=== PATIENT | female | born 1980 | race American Indian/Alaskan Native ===

== ENCOUNTER 2021-03-25 20:42 | Emergency (ER) | payer MEDICAID, SELFPAY ==
--- NOTE | ~2021-03-25 | XR_ITS ---
EXAMINATION: XR KNEE, LEFT CLINICAL INFORMATION: Knee pain after a fall. COMPARISON: None TECHNIQUE: Four views of the left knee. FINDINGS: Bones and soft tissues are normal. No fracture or joint effusion. Alignment is anatomic. Joint spaces are well maintained. No abnormal soft tissue calcification. XR/XR knee LT 3V IMPRESSION: Normal left knee.
[2021-03-25 20:51] VITALS: BP 146/94; PULSE 95; RESP 18; TEMP 36.6; O2SAT 97; BMI 27.0
--- NOTE | 2021-03-25 21:57 | ED.LOWEXIN ---
HPI - Extremity Injury (Lower) General Chief Complaint: Extremity Injury, Lower Stated Complaint: Knee pain Time Seen by Provider: 03/25/21 20:57 Source: patient Mode of arrival: ambulatory History of Present Illness HPI Narrative: 40-year-old female no significant past medical history presenting to the ED complaining of left knee pain s/p slip and fall on wet floor after leaving work a few days ago. Reports pain since incident, worse with ambulation/movement. Reports shocking pain down LLE. Denies numbness, tingling, weakness, head trauma, LOC Related Data Previous Rx's Medication Instructions Recorded acetaminophen 500 mg tablet 500 mg PO Q6H PRN #20 tab 03/25/21 (Tylenol Extra Strength) naproxen 500 mg tablet 500 mg PO BID PRN 10 Days #20 tab 03/25/21 Allergies Allergy/AdvReac Type Severity Reaction Status Date / Time No Known Allergies Allergy Unverified 04/26/20 19:15 Review of Systems Review of Systems: Constitutional: No Fever, No Chills Musculoskeletal: + joint pain, No Myalgias, No Joint Swelling Skin: No Skin Lesions, No rash Neuro: No Weakness, No Numbness, No Paresthesias, no head trauma, no LOC Yes all other systems are reviewed and are negative [facility] Past Medical History Attestation statement: The following information was validated with the patient. Medical History (Updated 03/25/21 @ 22:12 by MUNDO Stuart) No known health problems Social History Social History Advance Directives: No Advance Directives Information Provided: No Physical Exam Vital Signs: Vital Signs: Last Vital Signs Temp 97.9 F 03/25/21 20:51 Pulse 95 03/25/21 20:51 Resp 18 03/25/21 20:51 BP 146/94 H 03/25/21 20:51 Pulse Ox 97 03/25/21 20:51 Body Mass Index 27.0 Const: General: cooperative and healthy appearing Orientation/consciousness: patient oriented x3 Limitations: no limitations HENMT: Head: Yes normal to inspection Ears: hearing grossly normal bilaterally General nose exam: Normal external nose present Face and sinus: Yes normal facial exam Eyes: General: appearance normal, both eyes and all related structures EOM: EOMs intact bilaterally Neck: Neck: Yes normal visual inspection Resp: Effort & Inspection: normal respiratory effort and no respiratory distress Cardio: Rate: regular rate Peripheral pulses: dorsalis pedis present Skin: Rashes: no rashes Wounds: no wounds Neuro: General: patient oriented x3 Gait exam (Neuro): Normal gait present Extrem: Other: Left knee with mild tenderness to palpation. FROM intact. Neurovascularly intact distally. Ambulating with steady gait General: Yes normal to inspection Course Course Course Narrative: XR knee LT 3V IMPRESSION: Normal left knee. >> discussed with patient. Lavelle wrap applied for comfort/stability. Is to follow up with PCP as needed MDM - Extremity Injury (Lower) MDM Narrative Medical decision making narrative: 40-year-old female no significant past medical history presenting to the ED complaining of left knee pain s/p slip and fall on wet floor after leaving work a few days ago. On exam VSS, NAD visual exam swelling. Rule out fracture versus MSK pain/strain. Will obtain x-rays Discharge Plan Discharge Clinical Impression: Knee pain Qualifiers: Chronicity: acute Laterality: left Qualified Code(s): M25.562 - Pain in left knee Patient Disposition: Home, Self-Care Instructions: Knee Pain (ED) Additional Instructions: Your x-ray was unremarkable Wear Lavelle wrap at home as needed for comfort/stability Ice and elevate her knee Naproxen as an anti-inflammatory/pain medication, take with food In addition take Tylenol new line follow-up with her doctor Tu radiograf?a no tuvo nada especial Use la envoltura Lavelle en casa seg?n sea necesario para mayor comodidad / estabilidad Hielo y eleva jimenez rodilla Naproxeno mark medicamento antiinflamatorio / analg?sico, dominic con alimentos. Adem?s, lleve el seguimiento de la nueva l?svetlana de Tylenol con jimenez m?dico. Prescriptions: New acetaminophen [Tylenol Extra Strength] 500 mg tablet 500 mg PO Q6H PRN (Reason: pain or fever) Qty: 20 RF: 0 naproxen 500 mg tablet 500 mg PO BID PRN (Reason: pain) 10 Days Qty: 20 RF: 0 Referrals: Physician,Unknown [Primary Care Provider] - 2 days Stand Alone Forms: Work/School Release Interventions: ED Discharge Assessment Last Done: 03/25/21 22:27 Discharge Date/Time: 03/25/21 22:28 Print Language: Thai
== END 2021-03-25 22:28 | disposition home or self-care (01) ==
PROVIDERS: Emergency Provider Student in an Organized Health Care Education/Training Program
DX: Z04.2 Encounter for examination and observation following work accident (principal); M25.562 Pain in left knee
CPT/HCPCS: 73562; 99283

== ENCOUNTER 2021-09-23 11:08 | Emergency (ER) | payer MEDICAID, SELFPAY ==
[2021-09-23 11:40] VITALS: BP 135/84; PULSE 86; RESP 17; TEMP 36.1; O2SAT 97; BMI 35.6
[2021-09-23 11:52] LABS: MANUAL DIFF FLAG NO
[2021-09-23 11:57] LABS: Basophils Absolute Auto 0.1 X10*3/uL (0.0-0.2); Basophils Percent Auto 0.6 % (0-2); Eosinophils Absolute Auto 0.4 X10*3/uL (0.0-0.4); Eosinophils Percent Auto 4.2 % (0-4); Hematocrit 42.8 % (37.0-47.0); Hemoglobin 14.1 g/dl (12.0-16.0); Imm Gran Abs Auto 0.01 X10*3/uL (0.00-0.03); Imm Gran Pct Auto 0.1 % (0.0-0.4); Lymphocytes Absolute Auto 3.1 X10*3/uL (1.2-4.9); Lymphocytes Percent Auto 36.9 % (20-40); Mean Corpuscular HGB Conc 32.9 g/dl (31.0-35.0); Mean Corpuscular Hemoglobin 28.1 pg (27.0-33.0); Mean Corpuscular Volume 85.4 fL (80.0-98.0); Mean Platelet Volume 9.5 fL (9.4-12.3); Monocytes Absolute Auto 0.5 X10*3/uL (0.1-1.2); Monocytes Percent Auto 6.4 % (2-11); Neutrophils Absolute Auto 4.3 x10*3/uL (2.0-8.3); Neutrophils Percent Auto 51.8 % (45-73); Platelet Count 342 X10*3/uL (160-400); Red Blood Count 5.01 X10*6/uL (4.20-5.50); Red Cell Distribution Width 12.2 % (11.0-16.0); White Blood Count 8.3 X10*3/uL (4.8-10.8)
[2021-09-23 12:14] LABS: Appearance Urine HAZY; Color Urine YELLOW; Glucose Urine UA NEG (NEG); Leukocyte Esterase Urine NEG (NEG); Nitrite Urine NEG (NEG); PH 5.5 (5.0-8.0); Urine Blood NEG (NEG); Urine Ketones NEG (NEG); Urine Protein NEG (NEG-TRACE)
[2021-09-23 12:27] LABS: Alanine Aminotransferase 19 U/L (0-31); Alkaline Phosphatase 80 U/L (39-117); Anion Gap 11 (12-20); Aspartate Amino Transferase 15 U/L (5-31); Bilirubin Total 0.2 mg/dL (0.0-1.0); Blood Urea Nitrogen 10 mg/dL (9-16); Calcium 9.5 mg/dL (8.4-10.2); Carbon Dioxide 23 mmol/L (22-29); Chloride 107 mmol/L (96-108); Creatinine Clr Calc Pharmacy 105.3; Estimated Glomerular Filt Rate > 60; Glucose Random 108 mg/dL (60-115); Potassium 4.3 mmol/L (3.3-5.1); Sodium 137 mmol/L (135-145); Total Protein 7.3 g/dL (6.5-8.0)
[2021-09-23 12:55] LABS: UPreg QC Valid YES; Urine Pregnancy NEGATIVE (NEGATIVE)
--- NOTE | 2021-09-23 14:21 | ED.NAVMDI ---
HPI - Nausea/Vomiting/Diarrhea General Chief complaint: Abdominal Pain Stated complaint: ABD PAIN Time Seen by Provider: 09/23/21 12:40 Source: patient Mode of arrival: ambulatory Limitations: no limitations History of Present Illness HPI Narrative: Patient comes to the emergency room complaining of diarrhea since yesterday. Patient denies fever chills, no abdominal pain other than occasional cramping. No UTI symptoms no URI symptoms. Patient's is in the emergency room as a patient as well with the same symptoms. Patient states that the only thing that they ate that might have caused him to have diarrhea is pizza Related Data Previous Rx's Medication Instructions Recorded acetaminophen 500 mg tablet 500 mg PO Q6H PRN #20 tab 03/25/21 (Tylenol Extra Strength) naproxen 500 mg tablet 500 mg PO BID PRN 10 Days #20 tab 03/25/21 loperamide 2 mg tablet 2 mg PO Q4H PRN #14 tab 09/23/21 Allergies Allergy/AdvReac Type Severity Reaction Status Date / Time No Known Allergies Allergy Unverified 04/26/20 19:15 Review of Systems Review of Systems: Constitutional : No Weight loss, No Fever, No Chills, No Night Sweats, No Fatigue, No Malaise ENT/Mouth : No Hearing loss, No Ear Pain, No Nasal Congestion, No Sinus Pain, No Hoarseness, No sore throat, No Rhinorrhea, No Swallowing Difficulty Eyes: No Eye Pain, No Swelling, No Redness, No Foreign Body, No Discharge, No Vision Changes Cardiovascular : No Chest Pain, No SOB, No Dyspnea on Exertion, No Orthopnea, No Edema, No Palpitations Respiratory : No Cough, No Sputum, No Wheezing, No Smoke Exposure, No Dyspnea Gastrointestinal : No nausea or vomiting, no abdominal pain, mild abdominal cramping, complaining of diarrhea, no rectal bleeding Genitourinary : no irregular bleeding, No Dysuria, No Urinary Frequency, No Hematuria, No Urinary Incontinence, No Urgency, No Flank Pain, No Urinary Flow Changes, No Hesitancy Musculoskeletal : No joint pain, No Myalgias, No Joint Swelling Skin : No Skin Lesions, No rash Neuro : No Weakness, No Numbness, No Paresthesias, No Loss of Consciousness, No Dizziness, No Headache Psych : No Anxiety/Panic, No Depression, No SI/HI/AH/VH, No Social Issues, Heme/Lymph: No Bruising, No Bleeding,No Lymphadenopathy Endocrine : No Polyuria, No Polydipsia, No Temperature Intolerance COUNT INCLUDES THE [facility] Past Medical History Medical History No known health problems Social History Social History Patient : No Physical Exam Vital Signs: Vital Signs: Last Vital Signs Temp 96.9 F 09/23/21 11:40 Pulse 86 09/23/21 11:40 Resp 17 09/23/21 11:40 BP 135/84 09/23/21 11:40 Pulse Ox 97 09/23/21 11:40 BMI result Body Mass Index 35.6 Const: Other: Appearance: Alert. Oriented X3. No acute distress. Well-appearing Eyes: Pupils equal, round and reactive to light. ENT: Pharynx normal. Oral mucosa hydrated Neck: Normal inspection. Neck supple. No lymph nodes noted. No crepitus CVS: Normal heart rate and rhythm. Pulses normal. Normal S1 and S2 Respiratory: No respiratory distress. Breath sounds normal. No Wheezing. No rales Abdomen: Soft and nontender. No rigidity. No distention. Skin: Skin warm and dry. Normal skin color. Normal skin turgor. Extremities: No lower extremity edema. No Lacerations. No Rash Neuro: Oriented X 3. No motor deficit. No sensory deficit. Moving all extermities. No slurred speech. Course Course Course Narrative: Patient likely having gastroenteritis, no acute dehydration. Patient was given the 1st dose of loperamide in the emergency room. MDM - Nausea/Vomiting/Diarrhea Lab Data Result diagrams: 09/23/21 11:49 09/23/21 11:49 Labs: Lab Results 09/23/21 09/23/21 09/23/21 Range/Units 11:49 11:49 11:57 WBC 8.3 (4.8-10.8) X10*3/uL RBC 5.01 (4.20-5.50) X10*6/uL Hgb 14.1 (12.0-16.0) g/dl Hct 42.8 (37.0-47.0) % MCV 85.4 (80.0-98.0) fL MCH 28.1 (27.0-33.0) pg MCHC 32.9 (31.0-35.0) g/dl RDW 12.2 (11.0-16.0) % Plt Count 342 (160-400) X10*3/uL MPV 9.5 (9.4-12.3) fL Immature Gran % (Auto) 0.1 (0.0-0.4) % Neut % (Auto) 51.8 (45-73) % Lymph % (Auto) 36.9 (20-40) % Ward % (Auto) 6.4 (2-11) % Eos % (Auto) 4.2 H (0-4) % Baso % (Auto) 0.6 (0-2) % Lymph # (Auto) 3.1 (1.2-4.9) X10*3/uL Ward # (Auto) 0.5 (0.1-1.2) X10*3/uL Eos # (Auto) 0.4 (0.0-0.4) X10*3/uL Baso # (Auto) 0.1 (0.0-0.2) X10*3/uL Abs Immat Gran (auto) 0.01 (0.00-0.03) X10*3/uL Absolute Neuts (auto) 4.3 (2.0-8.3) x10*3/uL Absolute Nucleated RBC 0.000 (0.0-0.012) X10*3/uL Nucleated RBC % (auto) 0.0 (0.0-0.2) /100WBC Sodium 137 (135-145) mmol/L Potassium 4.3 (3.3-5.1) mmol/L Chloride 107 (96-108) mmol/L Carbon Dioxide 23 (22-29) mmol/L Anion Gap 11 L (12-20) BUN 10 (9-16) mg/dL Creatinine 0.72 (0.5-1.4) mg/dL Estim Creat Clear Calc 105.3 Estimated GFR > 60 Random Glucose 108 (60-115) mg/dL Calcium 9.5 (8.4-10.2) mg/dL Total Bilirubin 0.2 (0.0-1.0) mg/dL AST 15 (5-31) U/L ALT 19 (0-31) U/L Alkaline Phosphatase 80 (39-117) U/L Total Protein 7.3 (6.5-8.0) g/dL Albumin 4.0 (3.5-5.0) g/dL Urine Color YELLOW Urine Appearance HAZY Urine pH 5.5 (5.0-8.0) Ur Specific [place] 1.020 (1.005-1.025) Urine Protein NEG (NEG-TRACE) MG/DL Urine Glucose (UA) NEG (NEG) MG/DL Urine Ketones NEG (NEG) MG/DL Urine Blood NEG (NEG) Urine Nitrite NEG (NEG) Ur Leukocyte Esterase NEG (NEG) Urine Test (NEGATIVE) 09/23/21 Range/Units 11:57 WBC (4.8-10.8) X10*3/uL RBC (4.20-5.50) X10*6/uL Hgb (12.0-16.0) g/dl Hct (37.0-47.0) % MCV (80.0-98.0) fL MCH (27.0-33.0) pg MCHC (31.0-35.0) g/dl RDW (11.0-16.0) % Plt Count (160-400) X10*3/uL MPV (9.4-12.3) fL Immature Gran % (Auto) (0.0-0.4) % Neut % (Auto) (45-73) % Lymph % (Auto) (20-40) % Ward % (Auto) (2-11) % Eos % (Auto) (0-4) % Baso % (Auto) (0-2) % Lymph # (Auto) (1.2-4.9) X10*3/uL Ward # (Auto) (0.1-1.2) X10*3/uL Eos # (Auto) (0.0-0.4) X10*3/uL Baso # (Auto) (0.0-0.2) X10*3/uL Abs Immat Gran (auto) (0.00-0.03) X10*3/uL Absolute Neuts (auto) (2.0-8.3) x10*3/uL Absolute Nucleated RBC (0.0-0.012) X10*3/uL Nucleated RBC % (auto) (0.0-0.2) /100WBC Sodium (135-145) mmol/L Potassium (3.3-5.1) mmol/L Chloride (96-108) mmol/L Carbon Dioxide (22-29) mmol/L Anion Gap (12-20) BUN (9-16) mg/dL Creatinine (0.5-1.4) mg/dL Estim Creat Clear Calc Estimated GFR Random Glucose (60-115) mg/dL Calcium (8.4-10.2) mg/dL Total Bilirubin (0.0-1.0) mg/dL AST (5-31) U/L ALT (0-31) U/L Alkaline Phosphatase (39-117) U/L Total Protein (6.5-8.0) g/dL Albumin (3.5-5.0) g/dL Urine Color Urine Appearance Urine pH (5.0-8.0) Ur Specific [place] (1.005-1.025) Urine Protein (NEG-TRACE) MG/DL Urine Glucose (UA) (NEG) MG/DL Urine Ketones (NEG) MG/DL Urine Blood (NEG) Urine Nitrite (NEG) Ur Leukocyte Esterase (NEG) Urine Test NEGATIVE (NEGATIVE) Discharge Plan Discharge Clinical Impression: Diarrhea Patient Disposition: Home, Self-Care Instructions: Acute Diarrhea (ED) Additional Instructions: Please follow-up with your primary care physician tomorrow. If you have any worsening or new symptoms, please return to the emergency room or call 911 Prescriptions: New loperamide 2 mg tablet 2 mg PO Q4H PRN (Reason: loose stool) Qty: 14 0RF Rx Instructions: administer after each loose stool until symptoms controlled; do not exceed 8 mg per 24 hrs No Action acetaminophen [Tylenol Extra Strength] 500 mg tablet 500 mg PO Q6H PRN (Reason: pain or fever) Qty: 20 0RF naproxen 500 mg tablet 500 mg PO BID PRN (Reason: pain) 10 Days Qty: 20 0RF Stand Alone Forms: Work/School Release Interventions: ED Discharge Assessment Last Done: 09/23/21 13:01
[2021-09-23] MEDS: Loperamide HCl 2 MG CAPSULE 4 MG PO (14:25)
== END 2021-09-23 14:35 | disposition home or self-care (01) ==
LOC: HO.ED 14:33
PROVIDERS: Physician Assistant Medical; Emergency Provider Emergency Medicine
DX: R19.7 Diarrhea, unspecified (principal)
CPT/HCPCS: 36415; 80053; 81003; 81025; 85025; 99283

== ENCOUNTER 2021-10-06 22:17 | Emergency (ER) | payer MEDICAID, SELFPAY ==
[2021-10-06 23:17] VITALS: BP 116/70; PULSE 105; RESP 16; TEMP 36.8; O2SAT 98; BMI 29.8
--- NOTE | 2021-10-06 23:55 | ED_ITS ---
HPI - General Adult General Chief complaint: General Medical Stated complaint: Flu like symptoms Source: patient Mode of arrival: ambulatory Limitations: no limitations History of Present Illness HPI narrative: 40-year-old female presents with 2 days of sore throat and cough. Onset (ago): day(s) (2) Location: head Radiation: non-radiation Severity: moderate Severity scale (1-10): 5 Quality: burning and aching Pain Consistency: constant Relieving factors: none Exacerbating factors: eating Associated symptoms: denies other symptoms Treatments prior to arrival: none Related Data Previous Rx's Medication Instructions Recorded acetaminophen 500 mg tablet 500 mg PO Q6H PRN #20 tab 03/25/21 (Tylenol Extra Strength) naproxen 500 mg tablet 500 mg PO BID PRN 10 Days #20 tab 03/25/21 loperamide 2 mg tablet 2 mg PO Q4H PRN #14 tab 09/23/21 amoxicillin 875 mg-potassium 1 tab PO Q12H 10 Days #20 tab 10/06/21 clavulanate 125 mg tablet Allergies Allergy/AdvReac Type Severity Reaction Status Date / Time No Known Allergies Allergy Verified 10/06/21 23:20 Review of Systems Review of Systems: Constitutional: No Fever, No Chills ENT/Mouth: No Ear Pain, No Hoarseness, positive sore throat Eyes: No Eye Pain, No Swelling, No Redness, No Foreign Body Cardiovascular: No Chest Pain, No SOB Respiratory: Positive Cough, No Dyspnea Gastrointestinal: No Nausea, No Vomiting, No Diarrhea, No abdominal Pain Genitourinary: No Dysuria, No Hematuria Musculoskeletal: No joint pain, No Myalgias, No Joint Swelling Skin: No Skin lacerations, No rash Neuro: No Weakness, No Numbness, No Paresthesias, No Loss of Consciousness, No Dizziness, No Headache Psych: No Anxiety/Panic, No Depression Heme/Lymph: no easy bruising, no Lymphadenopathy Endocrine: No Polyuria, No Polydipsia Yes all other systems are reviewed and are negative [facility] Past Medical History Attestation statement: The following information was validated with the patient. Source: old records reviewed Medical History No known health problems Social History Social History Advance Directives: No Advance Directives Information Provided: No Patient : No Physical Exam ED Vital Signs: Vital Signs - 24 hr 10/06/21 23:17 Temperature 98.2 F Pulse Rate 105 H Respiratory Rate 16 Blood Pressure 116/70 Pulse Oximetry 98 BMI result Body Mass Index 29.8 Appearance: Alert. Oriented X3. No acute distress. Eyes: Pupils equal, round and reactive to light. ENT: Pharynx erythematous with bilateral tonsillar swelling with exudates. Neck: Normal inspection. Neck supple. No cervical lymphadenopathy. CVS: Normal heart rate and rhythm. Pulses normal. Respiratory: No respiratory distress. Breath sounds normal. Abdomen: Soft and nontender. Skin: Skin warm and dry. Normal skin color. Normal skin turgor. Extremities: No lower extremity edema. Gait well-balanced well coordinated. Neuro: No motor deficit. No sensory deficit. Cranial nerves 2-12 intact. Course Course Course Narrative: 40-year-old female presents with 2 days of upper respiratory symptoms and sore throat. Physical exam is consistent with strep pharyngitis. Will treat with Augmentin and Motrin. medical interpreter utilized for all correspondence. Google translate utilized in discharge instructions.Patient verbalized understanding of and agrees to plan of care discharge home. Verbalized understanding of signs and symptoms indicating need for emergent intervention Medical Decision Making Differential Diagnosis Differential Diagnosis: Pharyngitis, viral syndrome Medical Records Medical records reviewed: Yes I reviewed the patient's medical records. Lab Data Lab results reviewed: Yes I reviewed the patient's lab results. Discharge Plan Discharge Clinical Impression: Acute streptococcal pharyngitis Patient Disposition: Home, Self-Care Instructions: Strep Throat (ED) Additional Instructions: Usted fue evaluado por s?ntomas de las v?as respiratorias superiores. El examen f?sico indica faringitis estreptoc?cica. [employer] Augmentin 875 mg dos veces al d?a mattie los pr?ximos 10 d?as. Use Motrin 600 mg cada 6 horas seg?n sea necesario para controlar el dolor. [employer] Tylenol 650 mg cada 6 horas seg?n sea necesario para controlar el dolor. Por favor, anote a qu? hora vivian los medicamentos para evitar mary sobredosis accidental. Seguimiento con m?dico de atenci?n primaria. Jalyn por elegir cynthia departamento de emergencias para jimenez evaluaci?n. Por favor, vanessa un seguimiento con el m?dico de atenci?n primaria seg?n sea necesario. Regrese al departamento de emergencias por cualquier s?ntoma nuevo, preocupante o que empeore. You were evaluated for upper respiratory symptoms. Physical examination indicates strep pharyngitis. Please take Augmentin 875 mg twice a day for the next 10 days. Use Motrin 600 mg every 6 hours as needed for pain management. Take Tylenol 650 mg every 6 hours as needed for pain management. Please write down what time he takes medications prevent accidental overdose. Follow-up with primary care physician. Thank you for choosing this emergency department for evaluation. Please follow-up with primary care physician as needed. Return to the emergency department for any new, concerning, or worsening symptoms. Prescriptions: New amoxicillin-pot clavulanate 875-125 mg tablet 1 tab PO Q12H 10 Days Qty: 20 0RF No Action acetaminophen [Tylenol Extra Strength] 500 mg tablet 500 mg PO Q6H PRN (Reason: pain or fever) Qty: 20 0RF naproxen 500 mg tablet 500 mg PO BID PRN (Reason: pain) 10 Days Qty: 20 0RF loperamide 2 mg tablet 2 mg PO Q4H PRN (Reason: loose stool) Qty: 14 0RF Rx Instructions: administer after each loose stool until symptoms controlled; do not exceed 8 mg per 24 hrs Stand Alone Forms: Work/School Release
[2021-10-07 00:12] LABS: COVID-19 Test Negative (Negative)
[2021-10-07 00:30] LABS: Strep A Nucleic Acid Negative (Negative)
[2021-10-07] MEDS: Amoxicillin/Potassium Clav 875 MG TABLET PO (00:38)
[2021-10-07] MEDS: Ibuprofen 600 MG TABLET PO (00:38)
== END 2021-10-07 01:08 | disposition home or self-care (01) ==
PROVIDERS: Emergency Provider Emergency Medicine
DX: J02.0 Streptococcal pharyngitis (principal); R05.9 Cough, unspecified; Z20.822 Contact with and (suspected) exposure to COVID-19; Z79.899 Other long term (current) drug therapy
CPT/HCPCS: 87635; 87651; 99284

== ENCOUNTER 2024-06-07 11:10 | Outpatient (REF) | payer MEDICAID, SELFPAY ==
--- NOTE | ~2024-06-07 | XR_ITS ---
EXAMINATION: XR KNEE, LEFT CLINICAL INFORMATION: Pain of left knee ongoing, cracking on exam. COMPARISON: 03/25/2021 TECHNIQUE: 2 views of the left knee. FINDINGS: Mild narrowing of the medial compartment. Tiny tricompartmental osteophytes. [id number] suprapatellar effusion. XR/XR knee LT 2V IMPRESSION: [id number] suprapatellar effusion. Mild degenerative changes. This study was presented today 06/07/2024 for interpretation. Stat results provided at this time as requested by referring provider. Electronically signed by: Paula Varghese MD 06/07/2024 12:02 PM EDT
== END 2024-06-07 11:11 | disposition home or self-care (01) ==
LOC: HO.HHCX 11:10
PROVIDERS: Visit Provider Student in an Organized Health Care Education/Training Program
DX: M25.562 Pain in left knee (principal)
CPT/HCPCS: 73560

== ENCOUNTER 2024-07-18 10:48 | Outpatient (AMB) | payer MEDICAID, SELFPAY ==
--- NOTE | 2024-07-18 11:03 | MHC.OFFVIS ---
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 Patient reports ongoing pain for about 3 months. Hx of fall about a month ago. She mentions her pain is all over her knee and it goes behind her knee. Patient states that her pain is worse when she is standing for a long time, walking for a long period of time. Patient is not able to stand or walking for more than a hour. She has tried and failed NSAIDs and Tynelo with no releif. Party Plan Sales Unit Sales Leader Required: Yes Party Plan Sales Unit Sales Leader Services: Party Plan Sales Unit Sales Leader Present (Rajeev ([id number])) Allergies No Known Allergies Allergy (Verified 07/18/24 11:08) Medication List - Last Reconciled 07/18/24 by Jeferson Sands PA-C acetaminophen (Tylenol Extra Strength) 500 mg PO Q6H PRN HPI HPI TELECOMMUNICATIONS REPAIRER-Left knee acute pain: Details: 43-year-old female who presents to the office today with an ui programmer for an evaluation of acute left knee pain for 3 months. She has a history of fall about a month ago. She currently states she has pain all over her left knee that radiates behind her knee. Her pain is aggravated with stair use as well as prolonged standing and walking. She is unable to stand or walk for more than an hour. She has tried NSAIDS and Tylenol in the past without benefits. She does not have a history of diabetes. [facility] Medical History No known health problems Social History (Updated 07/18/24 @ 11:10 by Dale Aldrich) Alcohol intake: never Patient Tobacco Use Status: Current everyday Tobacco user Cigarette Packs Per Day: 1 Current occupational status: employed Current occupation: [employer] Review of Systems Const All systems reviewed & are unremarkable except as noted in HPI and below Physical Exam Const General: cooperative, healthy appearing, comfortable, no acute distress, well developed and alert Orientation/consciousness: patient oriented x3 HEENT Head: Yes normal to inspection, Yes normocephalic and Yes atraumatic Eyes General: appearance normal, both eyes and all related structures Resp Effort & Inspection: normal respiratory effort and able to speak in complete sentences Cardio Rate: regular rate Peripheral pulses: Peripheral pulses 2+ throughout GI Palpation (GI): Soft to palpation Skin Lesions: no lesions Rashes: no rashes Neuro General: patient oriented x3 Extrem Other: Left knee: Skin intact, no erythema or joint effusion. Tenderness along the medial and lateral joint line. Full ROM with crepitus. Negative Amarjit?s. No ligamentous laxity. NVI. Office Procedures AMB Joint Injection/Aspiration Joint Injection/Aspiration Primary Site: left knee Prep: site was prepped using aseptic technique, ethochloride spray was applied and injection warnings given Injected: 80 mg of, DepoMedrol, with 8 mL of, 1% plain lidocaine and in the joint Approach Used: anterolateral Procedure: The patient tolerated the procedure well and there was some relief with the local anesthesia Coding 97872 - Glenohumeral/Tronchanteric Bursa/Intraarticular Procedure code (CPT) selection complete Results Reviewed Results Reviewed: Xrays were obtained in the office today and personally reviewed by me of the left knee show mild oa Assessment & Plan Assessment & Plan (1) Patellofemoral arthritis of left knee: Code(s): M17.12 - Unilateral primary osteoarthritis, left knee Category: Medical Plan We discussed options today, which include steroid injection. The patient did consent to move forward with the left knee injection, which was tolerated well. I recommended rest, ice, and elevation and OTC anti-inflammatories as needed for discomfort. An order for physical therapy was also ordered in the office today. If symptoms persist or worsens over the next 6-8 weeks, patient will contact the office, otherwise follow-up as needed. Orders: Orders XR knee standing BI Today M25.561 - Pain in right knee, M25.562 - Pain in left knee XR knee LT 1V Today M25.562 - Pain in left knee XR knee LT 2V Today M25.562 - Pain in left knee XR knee RT 1V Today M25.561 - Pain in right knee PT Evaluation and Treatment Today M17.12 - Unilateral primary osteoarthritis, left knee Medications: Discontinued naproxen Discontinued Reason: Patient no longer taking 500 mg PO BID 10 days PRN 20 tabs 0RF pain amoxicillin-pot clavulanate 875-125 mg Discontinued Reason: Patient no longer taking 1 tab PO Q12H 10 days 20 tabs 0RF loperamide administer after each loose stool until symptoms controlled; do not exceed 8 mg per 24 hrs Discontinued Reason: Patient no longer taking 2 mg PO Q4H PRN 14 tabs 0RF loose stool Patient Instructions: Scribed for Jeferson Sands PA-C, by Jerson Lopez dental assistant medical assistant, on 07/18/2024 at 10:45 AM EST.? I, Jeferson Sands PA-C, have personally reviewed and agree with the information entered by the scribe. Coding Level of Care Code New Pt Level 3 (21803) Complex EM visit Add On G2211 Diagnoses Patellofemoral arthritis of left knee M17.12 CPT Codes Coding - Joint 7: 20448 - Glenohumeral/Tronchanteric Bursa/Intraarticular ([id number])
== END 2024-07-18 11:35 | disposition home or self-care (01) ==
PROVIDERS: Visit Provider Physician Assistant
DX: M17.12 Unilateral primary osteoarthritis, left knee (principal)
CPT/HCPCS: 20610; 99203

== ENCOUNTER 2024-07-18 10:54 | Outpatient (REF) | payer MEDICAID, SELFPAY ==
--- NOTE | ~2024-07-18 | XR_ITS ---
EXAMINATION: XR KNEE LEFT CLINICAL INFORMATION: Pain in left knee M25.562. COMPARISON: XR Left knee 06/07/2024 TECHNIQUE: AP standing view and sunrise view of the left knee. FINDINGS: Mild lateral and patellofemoral compartment osteoarthritis. No obvious fracture. No significant change. XR/XR knee LT 2V IMPRESSION: Mild lateral and patellofemoral compartment osteoarthritis. No significant change. Electronically signed by: Zeyad Grider MD 08/25/2024 10:17 AM JO[facility]
--- NOTE | ~2024-07-18 | XR_ITS ---
EXAMINATION: XR KNEE RIGHT CLINICAL INFORMATION: Pain in right knee M25.561. COMPARISON: XR Right knee 04/23/2020 TECHNIQUE: AP standing view of the right knee. FINDINGS: Small marginal osteophytes in the medial and lateral compartments with no significant narrowing. XR/XR knee RT 1V IMPRESSION: Mild medial and lateral compartment osteoarthritis. Electronically signed by: Zeyad Grider MD 08/25/2024 10:16 AM [facility]
== END 2024-07-18 10:55 | disposition home or self-care (01) ==
LOC: HO.HOSX 10:54
PROVIDERS: Visit Provider Physician Assistant
DX: M25.561 Pain in right knee (principal); M25.562 Pain in left knee; M17.12 Unilateral primary osteoarthritis, left knee
CPT/HCPCS: 20610; 73560; 99212; J1010; J2003

== ENCOUNTER 2024-08-14 16:55 | Emergency (ER) | payer MEDICAID, SELFPAY ==
--- NOTE | ~2024-08-14 | XR_ITS ---
CLINICAL HISTORY: coughing. pneumonia? 1 view chest x-ray Comparison: None Findings: Lungs are well inflated. Cardiac silhouette is within normal limits. Bilateral perihilar bronchial wall thickening with interstitial prominence. No dense area of consolidation. No pleural effusion. Mild eventration of the right hemidiaphragm. Impression: Perihilar bronchitis. This document has been electronically signed by: Francisco Valentino MD on 08/14/2024 18:57:09
[2024-08-14 18:06] VITALS: BP 136/86; PULSE 101; RESP 18; TEMP 36.9; O2SAT 98; BMI 35.0
--- NOTE | 2024-08-14 18:09 | ED_ITS ---
HPI - General Adult General Chief complaint: Upper Respiratory Symptoms Stated complaint: chest congestion Time Seen by Provider: 08/14/24 20:57 Source: patient, family and RN notes reviewed Mode of arrival: ambulatory Limitations: language barrier History of Present Illness ED Provider: Vinay HPI narrative: 43-year-old female presenting with 3 days of chest congestion, headache, sore th roat, dry cough, muscle aches/body pain, fatigue. Reports chest tightness with cough x 3 days. Denies fevers, chills, nausea, vomiting, diarrhea, chest pain, abdominal pain, shortness of breath. Patient reports trying Tylenol and ibuprofen for body pain with moderate effect. Reports sick contacts at home. Also seen today, daughter tested positive for COVID and strep throat, partner tested positive for strep throat. Related Data Previous Rx's ?Medication ?Instructions ?Recorded acetaminophen 500 mg tablet 500 mg PO Q6H PRN pain or fever 03/25/21 (Tylenol Extra Strength) #20 tabs amoxicillin 875 mg-potassium 1 tab PO Q12H #14 tabs 08/14/24 clavulanate 125 mg tablet Allergies Allergy/AdvReac Type Severity Reaction Status Date / Time No Known Allergies Allergy Verified 08/14/24 18:07 Review of Systems Constitutional: Constitutional: Reports body ache(s), Denies chills, Reports fatigue, Denies fever(s) and Reports headache(s) ENT: Reports headache(s), Denies neck pain and Reports sore throat Cardiovascular: Cardiovascular: Denies chest pain and Denies dyspnea Comments: Chest tightness with coughing Respiratory: Respiratory: Reports chest congestion, Reports cough (dry), Denies dyspnea and Denies wheezing Gastrointestinal: Gastrointestinal: Denies abdominal pain, Denies diarrhea, Denies nausea and Denies vomiting Musculoskeletal: Musculoskeletal: Reports myalgias and Denies neck pain Neurologic: Reports headache(s) Endocrine: Endocrine: Reports fatigue Allergic/Immunologic: Allergic/Immunologic: Denies wheezing PMFSH Past Medical History Medical History No known health problems Social History Social History (Updated 07/18/24 @ 11:10 by Dale Aldrich) Alcohol intake: never Patient Tobacco Use Status: Current everyday Tobacco user Cigarette Packs Per Day: 1 Advance Directives: No Advance Directives Information Provided: No Current occupational status: employed Current occupation: [employer] Physical Exam ED Vital Signs: Vital Signs - 24 hr 08/14/24 18:06 08/14/24 21:59 Temperature 98.4 F 98.4 F Pulse Rate 101 H 101 H Respiratory Rate 18 18 Blood Pressure 136/86 136/86 Pulse Oximetry 98 98 Oxygen Delivery Method Room Air Room Air BMI result Body Mass Index 35.0 Const General: cooperative, healthy appearing, comfortable and no acute distress HENMT Head: Yes normocephalic and Yes atraumatic Mouth: Normal oral and palatal mucosa present Throat: Yes uvula midline Neck Neck: Yes full ROM and Yes no lymphadenopathy Resp Effort & Inspection: normal respiratory effort Auscultation: clear to auscultation bilaterally and no wheezes Cardio Rate: regular rate Rhythm: regular rhythm Heart sounds: S1 normal heart sound present and S2 normal heart sound present Course Course Course Narrative: RME: 43-year-old female presents to ED for headache, chest congestion coughing and sore throat. Patient denies any chest pain or shortness of breath. SARs strep test x-ray ordered Medications Administered Discontinued Medications Generic Name Dose Route Start Last Admin Trade Name Freq PRN Reason Stop Dose Admin Amoxicillin/Clavulanate Potassium 875 mg 08/14/24 21:27 08/14/24 21:35 Amoxicillin/Potassium Clav 875 Mg Tablet PO 08/14/24 21:28 875 mg ONCE ONE Administration Medical Decision Making Medical Decision Making MDM Narrative: 43-year-old afebrile female presenting with a 3 day history of symptoms as mentioned above, and sick contacts at home. Positive COVID test in the ED today. Chest x-ray suggestive of bronchitis, which can be attributed to COVID, making pneumonia is less likely. Strep pharyngitis test is negative today, but with 2 family members at home with positive strep test and patient complaining of sore throat, it is reasonable to treat with antibiotics. Differential Diagnosis Differential Diagnoses: The differential diagnosis associated with the presentation includes COVID Influenza Strep pharyngitis Pneumonia Bronchitis Lab Data Labs: Lab Results 08/14/24 Range/Units 18:46 Influenza Type A (PCR) NEGATIVE (Negative) Influenza Type B (PCR) NEGATIVE (Negative) RSV RNA Qual (PCR) NEGATIVE (Negative) SARS-CoV-2 RNA (RT-PCR) POSITIVE A (Negative) S. pyogenes GrpA TERESSA Negative (Negative) Discharge Plan Discharge Clinical Impression: COVID-19, Pharyngitis Patient Disposition: Home, Self-Care Instructions: Pharyngitis (ED), COVID-19 (Coronavirus Disease 2019) (ED) Additional Instructions: You tested positive for COVID-19. Your strep test was negative, however given that your and daughter both have strep in you have a sore throat we will treat you with Augmentin Take the antibiotic twice daily for 1 week. Use Motrin/Tylenol for fevers, body aches, sore throat Follow-up with your primary doctor, return for new or worsening symptoms Your chest x-ray showed bronchitis but no pneumonia Prescriptions: New amoxicillin-pot clavulanate 875-125 mg tablet 1 tab PO Q12H Qty: 14 0RF No Action acetaminophen [Tylenol Extra Strength] 500 mg tablet 500 mg PO Q6H PRN (Reason: pain or fever) Qty: 20 0RF Stand Alone Forms: Work/School Release Interventions: ED Discharge Assessment Last Done: 08/14/24 21:59 Discharge Date/Time: 08/14/24 21:59 Print Language: Mauritanian
[2024-08-14 19:03] LABS: IDNOW Serial# 08D9AD1C; Strep A Nucleic Acid Negative (Negative)
[2024-08-14 19:36] LABS: Influenza A PCR NEGATIVE (Negative); Influenza B PCR NEGATIVE (Negative); Resp Syncy Virus RNA Qual PCR NEGATIVE (Negative); SARS COV2 PCR INHOUSE POSITIVE (Negative)
[2024-08-14] MEDS: Amoxicillin/Potassium Clav 875 MG TABLET PO (21:35)
[2024-08-14 21:59] VITALS: BP 136/86; PULSE 101; RESP 18; TEMP 36.9; O2SAT 98
== END 2024-08-14 21:59 | disposition home or self-care (01) ==
PROVIDERS: Physician Assistant; Emergency Provider Emergency Medicine Emergency Medical Services
DX: U07.1 COVID-19 (principal); R09.89 Other specified symptoms and signs involving the circulatory and respiratory systems; J02.9 Acute pharyngitis, unspecified; R51.9 Headache, unspecified; R05.9 Cough, unspecified; M79.10 Myalgia, unspecified site; F17.210 Nicotine dependence, cigarettes, uncomplicated
CPT/HCPCS: 0241U; 71045; 87651; 99282; 99283

== ENCOUNTER → 2024-08-14 18:09 | Outpatient (BNV) | payer MEDICAID, SELFPAY | PROVIDERS: Visit Provider Radiology Diagnostic Radiology | DX: J20.9 Acute bronchitis, unspecified (principal) | CPT/HCPCS: 71045 ==